=== PATIENT | male | born 2000 | race Caucasian/White ===

== ENCOUNTER 2019-03-08 12:39 | Emergency (ER) | payer BC ==
--- NOTE | 2019-03-08 13:11 | EDM.PDOC ---
ED HPI GENERAL MEDICAL PROBLEM - General Chief Complaint: Cardiovascular Problem Stated Complaint: SENT BY [facility] FOR EKG Time Seen by Provider: 03/08/19 12:50 Source of Information: Reports: Patient History Limitations: Reports: No Limitations - History of Present Illness INITIAL COMMENTS - FREE TEXT/NARRATIVE: 18-year-old male presents to the ED at the request of his primary care provider in [place]. Patient has been having panic attacks with a sense of doom and heaviness in his central chest. He gets no feeling of suffocation or throat pressure discomfort. Recognizes that he has a chronic anxiety problem it is getting gradually worse. He is still able to sleep for the most part. Still able to eat normally. He has elevated blood pressure recently and has been started on 10 mg of lisinopril daily and BuSpar 5 mg twice daily. This was started on the eighth of this month. He arrives with an elevated blood pressure and an elevated resting tachycardia of 1 15/m. Chief complaint is central chest heaviness. He has good insight into this being anxiety related. Has a strong sense of doom when he develops panic attacks. So far he has not found the medication helpful. Onset: Other Duration: Week(s):, Getting Worse, Intermittent Location: Reports: Chest (Central chest heaviness pressure.) Quality: Reports: Pressure, Other Severity: Moderate (Central chest pressure discomfort) Improves with: Reports: None ( 6-10) Worsens with: Reports: None Context: Reports: Other. Denies: Activity, Exercise, Lifting, Sick Contact, Trauma Associated Symptoms: Reports: Chest Pain, Shortness of Breath. Denies: Confusion (He gets this off and on when he becomes anxious and by history alone versus panic attack related), Cough, cough w sputum, Diaphoresis, Fever/Chills, Headaches, Loss of Appetite, Malaise, Nausea/Vomiting, Rash, Seizure, Syncope ( With panic attacks at times), Weakness Treatments [employer]ILY [employer]: Reports: Other (see below) (None.) Middle Chest Pain Score (Numeric/FACES): 5 - Related Data Allergies Allergy/AdvReac Type Severity Reaction Status Date / Time Penicillins Allergy Hives Verified 03/08/19 12:49 Home Meds: Home Meds Escitalopram Oxalate 20 mg PO DAILY #30 tablet 03/08/19 [Rx] LORazepam [Ativan] 1 mg PO ASDIRECTED PRN #12 tablet 03/08/19 [Rx] Lisinopril 10 mg PO DAILY 03/08/19 [History] busPIRone [Buspar] 5 mg PO TID 03/08/19 [History] Past Medical History HEENT History: Reports: Impaired Vision Cardiovascular History: Reports: Hypertension Psychiatric History: Reports: Anxiety - Past Surgical History HEENT Surgical History: Reports: Eye Surgery Social & Family History - Tobacco Use Smoking Status *Q: Never Smoker Second Hand Smoke Exposure: Yes - Recreational Drug Use Recreational Drug Use: No - Living Situation & Occupation Living situation: Reports: Single Occupation: Employed ED ROS GENERAL - Review of Systems Review Of Systems: See Below Constitutional: Reports: No Symptoms HEENT: Reports: No Symptoms Respiratory: Reports: Shortness of Breath. Denies: Wheezing, Pleuritic Chest Pain (Subjective shortness of breath when he gets a panic attack.), Cough, Sputum, Hemoptysis Cardiovascular: Reports: Chest Pain, Blood Pressure Problem (Central chest heaviness.). Denies: Claudication, Edema, Lightheadedness, Orthopnea ( Pressures been elevated every time he goes to the clinic in one needs checking at home for the last month or more.) Endocrine: Reports: No Symptoms GI/Abdominal: Reports: No Symptoms : Reports: No Symptoms Musculoskeletal: Reports: No Symptoms Skin: Reports: No Symptoms Neurological: Reports: No Symptoms Psychiatric: Reports: No Symptoms Hematologic/Lymphatic: Reports: No Symptoms Immunologic: Reports: No Symptoms ED EXAM, GENERAL - Physical Exam Exam: See Below Exam Limited By: No Limitations General Appearance: Alert, WD/WN, Anxious, Other (Blood pressure is 149/91. Sats are 100% on room air with respiratory rate is 16. Pulse is 97 in sinus. He was up to 1 15/m.) Eye Exam: Bilateral Eye: Normal Inspection Throat/Mouth: Normal Inspection, Normal Lips, Normal Teeth, Normal Gums, Normal Oropharynx Head: Atraumatic, Normocephalic Neck: Normal Inspection, Supple, Non-Tender, Full Range of Motion. No: Lymphadenopathy (L), Lymphadenopathy (R), Thyromegaly Respiratory/Chest: No Respiratory Distress, Lungs Clear, Normal Breath Sounds, Chest Non-Tender Cardiovascular: Normal Peripheral Pulses, Regular Rate, Rhythm, No Edema, No Gallop, No Murmur, No Rub Peripheral Pulses: 3+: Posterior Tibial (L), Posterior Tibial (R), Dorsalis Pedis (L), Dorsalis Pedis (R) GI/Abdominal: Normal Bowel Sounds, Soft, Non-Tender, No Organomegaly, No Abnormal Bruit, No Mass, Pelvis Stable Back Exam: Normal Inspection, Full Range of Motion. No: CVA Tenderness (L), CVA Tenderness (R) Extremities: Normal Inspection, Normal Range of Motion, Non-Tender Neurological: Alert, Oriented, CN II-XII Intact, Normal Cognition, Normal Gait, No Motor/Sensory Deficits Psychiatric: Normal Affect, Anxious, Other (Experiencing anxiety/panic attack.) Skin Exam: Warm, Dry, Intact, Normal Color, No Rash Course - Vital Signs Last Recorded V/S: Last Vital Signs Temp 37.1 C 03/08/19 12:45 Pulse 97 03/08/19 12:45 Resp 16 03/08/19 12:45 BP 149/91 H 03/08/19 12:45 Pulse Ox 100 03/08/19 12:45 - Orders/Labs/Meds Orders: Active Orders 24 hr Category Date Time Status EKG Documentation Completion [RC] STAT Care 03/08/19 13:06 Active - Radiology Interpretation Free Text/Narrative:: 18-year-old male presents to the ED for evaluation of the request of his primary care physician. Blood pressures been elevated for the last month and ease feeling some heavy central chest heaviness pressure discomfort. Was advised to come to the ED for an evaluation and ECG. However with sitting down taking his history he is experiencing generalized anxiety disorder almost on a daily basis with intermittent mild panic attacks. Is been started on buspirone 5 mg twice a day and lisinopril 10 mg once daily on February 23. Hasn't noticed any improvement in symptoms. Examination is normal. He has good insight into his anxiety problems. Plan ECG will be done. Lipid pressure is only mildly elevated at this time. I will have him continue the lisinopril 10 mg a day. The plan will be to discontinue the buspirone as I do not or have not ever found it very useful long-term. I will give him Ativan 1 mg to have on hand for bad panic attack as needed. I will start him on citalopram 20 mg once daily which will take about 21 days to start to work well to bring his anxiety under control. Follow-up with his personal care provider in 2 weeks and then in a month's time for reevaluation. Departure - Departure Time of Disposition: 13:37 Disposition: Home, Self-Care 01 Condition: Fair Clinical Impression: Non-cardiac chest pain Anxiety disorder Qualifiers: Anxiety disorder type: generalized anxiety disorder Qualified Code(s): F41.1 - Generalized anxiety disorder Prescriptions: Escitalopram Oxalate 20 mg PO DAILY #30 tablet LORazepam [Ativan] 1 mg PO ASDIRECTED PRN #12 tablet PRN Reason: Anxiety relief Instructions: Generalized Anxiety Disorder, Adult, Panic Attack, [id number] Forms: ED Department Discharge Additional Instructions: Evaluation the emergency room today at the request of your primary care physician due to central chest discomfort. After our discussion it is quite apparent that you're suffering from generalized anxiety disorder with intermittent panic attacks resenting with central chest discomfort. You have good insight into this disorder as you've been experiencing this for a lengthy period of time. Her pressures also become elevated secondary to anxiety. Examination other than elevated blood pressure is normal. ECG reveals regular sinus rhythm at 81 per minute with no signs of any heart related illness. Suggested is to continue with the lisinopril 10 mg once daily for blood pressure relief until anxiety symptoms come under control over the next 3-6 weeks. Just using escitalopram 20 mg once daily every morning which will start to work in about 1012 days and by 21 days is working well to bring anxiety symptoms under control. The BuSpar at this time. I did write a prescription for Ativan 1 mg strength to be used as needed for a panic attack is not going away in 5-10 minutes or severe panic attack. Suggest follow-up. With your primary care provider in [facility] each time and again in a month's time to make sure that symptoms are coming under control. I would think that after about 6 weeks of escitalopram that her blood pressure starts to settle down and you could probably wean off the lisinopril. - My Orders Last 24 Hours: My Active Orders 03/08/19 13:06 EKG Documentation Completion [RC] STAT - Assessment/Plan Last 24 Hours: My Active Orders 03/08/19 13:06 EKG Documentation Completion [RC] STAT
== END 2019-03-08 13:51 | disposition home or self-care (01) ==
LOC: JD.ED 12:39
DX: R07.89 Other chest pain (principal); F41.1 Generalized anxiety disorder; I10 Essential (primary) hypertension; Z88.0 Allergy status to penicillin; Z79.899 Other long term (current) drug therapy
CPT/HCPCS: 93005; 93010; 99284; 99284-25

== ENCOUNTER 2023-01-25 11:18 | Emergency (ER) | payer BC, OTHER | END 2023-01-25 13:03 | disposition home or self-care (01) | LOC: JD.ED 11:18 | DX: S92.352A Displaced fracture of fifth metatarsal bone, left foot, initial encounter for closed fracture (principal); I10 Essential (primary) hypertension; Z88.0 Allergy status to penicillin; Z79.899 Other long term (current) drug therapy; Z72.0 Tobacco use; X50.1XXA Overexertion from prolonged static or awkward postures, initial encounter | CPT/HCPCS: 73610-26-LT; 73610-LT; 73630-26-LT; 73630-LT; 99283 ==